=== PATIENT | male | born 1935 | race Caucasian/White ===

== ENCOUNTER → 2016-10-26 | Outpatient (CLI) | payer OTHER ==
[~2016-10-26] VITALS: Ht 177.8 cm; Wt 90.2 kg
[~2016-10-26] MED LIST: ADVIL100 M2 PO; ALLEGRA ALLERG180 MG PO; ALLEGRA60 MG PO; ANDROGEL; ASPIR 8181 M1 PO; CENTRUM SILVER1 EAC2 PO; CIPROFLOXACIN500 M3 PO; COQ-10100 MG PO; DIOVAN HCT 3201 EACH PO; FLOMAX PO; FLONASE 0.05%50 MCG NASAL; LEVOTHYROXIN0.025 MG PO; LIPITOR10 MG PO; TESTIM5 GM TOP; VITAMIN D2000 UNIT PO
--- NOTE | ~2016-10-26 | HPC ---
[facility] [address] [place] [address] PAIN MANAGEMENT CONSULTATION Name: SHANKAR MUIR Room #: REG [facility] Blas#: [id number] Admission: 10/26/16 Attend Phys: Graham Montelongo DO Discharge: Date of : 37 Report #: [id number] THIS REPORT FOR: //name// CC: Angela Monetlongo The patient is a 81-year-old gentleman, prior seen in the pain clinic 08/10/2016, with left trochanteric bursa at that time. Returns to pain clinic today noting that the hip pain has improved, but unfortunately he has had recurrence of his classic radicular pain down the left leg. He is planning drive to [place] next week. Concern with sitting in the car for a prolonged period of time will have exacerbation of radicular symptoms. PHYSICAL EXAMINATION: Shows 81-year-old gentleman, BMI is 28.5 kilograms per meter squared. Vital signs stable as noted in the EMR. Rises from chair using armrest, has an antalgic gait with positive straight leg raise on the left, slight decreased left hip flexion strength and left plantar flexion strength. Patient encouraged to take daily aspirin, which he already does. The patient encouraged to stop his drive every hour or 2 and get out to stretch. ASSESSMENT: Symptomatic lumbar radiculopathy secondary to spinal stenosis. PROCEDURE: Lumbar epidural injection under fluoroscopy. PROCEDURE NOTE: After both written and informed consent to include risk of spinal cord damage, increased pain, weakness and dural puncture, the patient was taken to the fluoroscopy suite, placed in the prone position. After sterile prep and drape, a skin wheal with lidocaine was raised. A 22-gauge epidural Tuohy needle was inserted in the midline at L5-S1 with good loss to resistance. Negative aspiration for cerebrospinal fluid or blood was noted. Then 1 mL of Omnipaque under biplanar fluoroscopy showed good spread within the epidural space. This was followed with 80 mg of triamcinolone plus 1 mL of 1.5% preservative-free Xylocaine, 0.5 mL Xylocaine was then injected to flush the needle; it was removed. The patient was monitored for an appropriate period of time and discharged in good and stable condition. <ELECTRONICALLY SIGNED> By: Graham Montelongo DO 10/27/16 1308 [id number] Graham Montelongo DO /nt
[2016-10-26 10:09] VITALS: BP 134/75
== END ==
LOC: PAIN 07:24
DX: M54.16 Radiculopathy, lumbar region (principal); M48.06 Spinal stenosis, lumbar region; I10 Essential (primary) hypertension

== ENCOUNTER → 2017-01-15 | Outpatient (CLI) | payer OTHER ==
[~2017-01-15] VITALS: Ht 177.8 cm; Wt 89.5 kg
--- NOTE | ~2017-01-15 | HPC ---
[facility] [place] [address] PAIN MANAGEMENT CONSULTATION Name: SHANKAR MUIR Room #: REG [facility]#: [id number] Admission: 01/15/17 Attend Phys: Graham Montelongo DO Discharge: Date of : 37 Report #: [id number] THIS REPORT FOR: //name// CC: Angela Montelongo The patient is a very pleasant 81-year-old gentleman, last seen in the pain clinic on October 23, we did an epidural injection for lumbar radicular pain with excellent improvement, greater than 90% for greater than 6 weeks. The patient prior had a left trochanteric bursa injection several months ago, again with relief from specific left hip pain. He returns to pain clinic today noting the pain has recurred acutely in the left hip. The patient notes pain began without antecedent trauma or overuse. Pain is in the left hip, posterior buttock, posterior thigh down to the foot. Pain is exacerbated with standing and walking. Though, he notes that with increased activity overtime, it does seem to get "a little bit better." The patient has been taking some Aleve OTC. Doing some stretching, all without significant efficacy. We reviewed diagnostic findings including MRI noting lumbar spondylosis and compromise throughout the low lumbar spine. Diagnostic study is noted in the chart. PHYSICAL EXAMINATION: Shows a pleasant 81-year-old gentleman, vitals on the EMR. He rises from chair using armrest, markedly antalgic gait favoring the left leg. Positive straight leg raise at 30 degrees. Decreased left hip flexion and plantar flexion strength. Achilles reflex nominally diminished on the left. Patellar reflexes are preserved. Passive rotation of the hip is unremarkable. Resistance to left leg abduction does not exacerbate pain compatible with classic trochanteric bursitis. ASSESSMENT: 1. Symptomatic lumbar radiculopathy by clinical exam and history. 2. Possible component of trochanteric bursitis. RECOMMENDATIONS: 1. Epidural injection under fluoroscopy today at L4-L5, left to midline. 2. Continue Aleve OTC b.i.d. 3. Follow up in 1 week for reevaluation and if symptomatic, consider trochanteric bursa at that time. PROCEDURE: Lumbar epidural injection under fluoroscopy. PROCEDURE NOTE: After both written and informed consent to include risk of spinal cord damage, increased pain, weakness and dural puncture, the patient was [address] [address] PAIN MANAGEMENT CONSULTATION Name: SHANKAR MUIR Room #: REG [facility]#: [id number] Admission: 01/15/17 Attend Phys: Graham Montelongo DO Discharge: Date of : 37 Report #: [id number] taken to the fluoroscopy suite, placed in the prone position. After sterile prep and drape, a skin wheal with lidocaine was raised. A 22-gauge epidural Tuohy needle was inserted in the midline at L4-L5 with good loss to resistance. Negative aspiration for cerebrospinal fluid or blood was noted. Then 1 mL of Omnipaque under biplanar fluoroscopy showed good spread within the epidural space. This was followed with 80 mg of triamcinolone plus 1 mL of 1.5% preservative-free Xylocaine, 0.5 mL Xylocaine was then injected to flush the needle; it was removed. The patient was monitored for an appropriate period of time and discharged in good and stable condition. By: [id number] Graham Montelongo DO /nt
[2017-01-15 09:42] VITALS: BP 159/85
== END | disposition home or self-care (01) ==
LOC: PAIN 01-04 08:25
DX: M54.16 Radiculopathy, lumbar region (principal)

== ENCOUNTER → 2017-01-22 | Outpatient (CLI) | payer OTHER ==
[~2017-01-22] VITALS: Ht 177.8 cm; Wt 89.9 kg
--- NOTE | ~2017-01-22 | HPC ---
[facility] [place] [address] PAIN MANAGEMENT CONSULTATION Name: SHANKAR MUIR Room #: REG [facility]#: [id number] Admission: 01/22/17 Attend Phys: Graham Montelongo DO Discharge: Date of : 37 Report #: [id number] THIS REPORT FOR: //name// CC: Angela Montelongo The patient is a very pleasant 81-year-old gentleman, has been treated for lumbar radiculopathy and left trochanteric bursitis. Actually at last visit on 01/15/2017, we proceeded with epidural injection at L4-L5. Continued with some Aleve OTC. He returns to pain clinic today noting greater than 50% improvement following the lumbar epidural injection, though still has point tenderness over the left trochanteric bursa. Pain is exacerbated with resistance to abduction. ASSESSMENT: Symptomatic left trochanteric bursitis. RECOMMENDATIONS: Left trochanteric bursa injection today, continue range of motion, core strengthening exercises. Follow up simply as needed. PROCEDURE NOTE: After written informed consent was obtained, the patient was placed in the right lateral decubitus position. Skin overlying the left trochanter was cleansed with ChloraPrep. A 22-gauge stylet needle was placed to contact the point of maximum tenderness over the left trochanteric bursa. Negative aspiration was accomplished. 40 mg triamcinolone plus 3 mL of 0.5% preservative-free bupivacaine was injected into and around the joint. Needle was removed. The area was cleansed, Band-Aids applied. The patient was monitored for an appropriate period of time, discharged in good and stable condition. <ELECTRONICALLY SIGNED> By: Graham Montelongo DO 01/22/17 1427 1329 1339 Graham Montelongo DO /nt
== END | disposition home or self-care (01) ==
LOC: PAIN 07:32
DX: M70.62 Trochanteric bursitis, left hip (principal); Z88.8 Allergy status to other drugs, medicaments and biological substances; Z79.82 Long term (current) use of aspirin; Z79.899 Other long term (current) drug therapy; Z98.890 Other specified postprocedural states

== ENCOUNTER → 2017-06-29 | Outpatient (CLI) | payer OTHER ==
[~2017-06-29] VITALS: Ht 177.8 cm; Wt 91.7 kg
[~2017-06-29] MED LIST changes: -ANDROGEL; +ANDROGEL TOP; +NORVASC5 MG PO
--- NOTE | ~2017-06-29 | HPC ---
[facility] [place] [address] PAIN MANAGEMENT CONSULTATION Name: SHANKAR MUIR Room #: REG [facility] Odon[facility]#: [id number] Admission: 06/29/17 Attend Phys: Graham Montelongo DO Discharge: Date of : 37 Report #: [id number] THIS REPORT FOR: //name// CC: Paddy Montelongo DATE OF SERVICE: 06/29/2017 The patient is an 82-year-old gentleman, prior seen in the Pain Clinic 01/22/2017 for left trochanteric bursitis. He has ongoing lumbar radicular pain. I did a left trochanteric bursa injection at that time with overall improvement of the left trochanteric bursa pain. I had prior to that done an epidural injection on 01/15/2017 for ongoing radicular pain. He progressed to have decompressive laminectomy by Dr. Arriaga, which has helped some with the radicular pain, though he still has what sounds like L4 radicular pain in the left leg, but point tenderness over the trochanteric bursa. PHYSICAL EXAMINATION: Shows a pleasant 82-year-old gentleman, BMI is 29 kg/m2. Vital signs stable as noted on the EMR with modest diastolic hypertension (blood pressure 135/93). Rises from chair using armrest, nominally antalgic gait. Lower extremity strength is symmetric. Straight leg raise is negative. Passive rotation of the hip is unremarkable. Very tender to palpate over the left trochanteric bursa. Nominally positive straight leg raise on the left. ASSESSMENT: Symptomatic lumbar radiculopathy with clinical exam and history. Left trochanteric bursitis seems to be the most problematic at present. Status post lumbar decompressive laminectomy greater than 6 weeks ago (April). RECOMMENDATIONS: 1. Left trochanteric bursa injection today, continue current medication, unchanged. 2. Follow up in 2-3 weeks for reevaluation. Consideration for epidural injection if indicated for ongoing radicular symptoms at that time. PROCEDURE NOTE: Left trochanteric bursa injection. DESCRIPTION OF PROCEDURE: After informed consent was obtained, the patient is placed in the right lateral decubitus position. Skin overlying the trochanteric bursa was cleansed with ChloraPrep. Skin wheal with Xylocaine was raised. A 22-gauge stylet needle was placed to contact the proximal aspect of the femur distal to the head. Needle was then withdrawn approximately 1 mm. Negative aspiration was accomplished. 40 mg triamcinolone plus 2 mL of 0.5% preservative-free bupivacaine was injected into and around the trochanteric bursa. Needle was removed. The area was cleansed and Band-Aids applied. The [address] [address] PAIN MANAGEMENT CONSULTATION Name: SHANKAR MUIR Room #: REG [facility]#: [id number] Admission: 06/29/17 Attend Phys: Graham Montelongo DO Discharge: Date of : 37 Report #: [id number] patient was told to use ice the area today. Follow up in 3 weeks for reevaluation. <ELECTRONICALLY SIGNED> By: Graham Montelongo DO 07/02/17 0731 1211 1808 Graham Montelongo DO /nt
[2017-06-29 10:42] VITALS: BP 135/93
== END ==
LOC: PAIN 06:47
DX: M70.62 Trochanteric bursitis, left hip (principal); Z98.890 Other specified postprocedural states; Z79.82 Long term (current) use of aspirin; Z79.899 Other long term (current) drug therapy; Z88.8 Allergy status to other drugs, medicaments and biological substances

== ENCOUNTER → 2017-07-05 | Outpatient (CLI) | payer OTHER ==
[~2017-07-05] VITALS: Ht 177.8 cm; Wt 90.7 kg
--- NOTE | ~2017-07-05 | P ---
[facility] [place] [address] PROCEDURE REPORT Name: SHANKAR MUIR Room #: REG [facility]#: [id number] Admission: 07/05/17 Attend Phys: Ortzi Carrasco MD Discharge: Date of : 37 Report #: [id number] THIS REPORT FOR: //name// CC: Paddy Carrasco BRIEF HISTORY: The patient is an 82-year-old male for average risk screening colonoscopy. PREOPERATIVE DIAGNOSIS: Average screening colonoscopy. POSTOPERATIVE DIAGNOSIS: Multiple colon polyps. MEDICATIONS: Deep sedation with propofol per anesthesia. SPECIMENS: 1. Polyp from cecum. 2. Polyp from proximal ascending colon. 3. Polyp from hepatic flexure. 4. Polyp at 40 cm. 5. Polyp from rectum. ESTIMATED BLOOD LOSS: 3 mL. PROCEDURE: Colonoscopy to cecum and terminal ileum. FINDINGS: Prior to propofol sedation, the procedure of colonoscopy discussed with the patient as well as potential risks, benefits, and complications. He indicates he understands and desires to proceed. With the patient in left lateral decubitus position, digital examination was completed, which revealed no abnormalities. Subsequently, the [employer] video colonoscope was introduced in the rectum, advanced under direct vision to the cecum. It was done with minimal difficulty. The cecum was identified by the ileocecal valve and the appendiceal orifice. I was able to advance the tip of the scope to the mouth of the ileocecal valve. I could see a villous pattern, but due to looping, we could not deeply intubate the ileum. At that point, the scope was slowly withdrawn and careful circumferential views were obtained. As the scope was withdrawn, he was noted have a diminutive polyp in the cecum, which was removed by biopsy. In the proximal ascending colon, a 5-6 mm sessile polyp was seen and removed by cold snare polypectomy. Scope was further withdrawn and in the hepatic flexure, a diminutive polyp was seen and removed by biopsy and another diminutive polyp was seen and removed by biopsy at 40 cm. In the rectum, a flat polyp about 6-8 mm across was removed by hot snare polypectomy. The scope was further drawn and no additional abnormalities were seen. Upon retroflexion, no abnormalities were seen. Scope was withdrawn. The [address] [address] PROCEDURE REPORT Name: SHANKAR MUIR Room #: REG [facility].#: [id number] Admission: 07/05/17 Attend Phys: Ortiz Carrasco MD Discharge: Date of : 37 Report #: [id number] patient tolerated the procedure well. CONDITION OF THE PATIENT UPON DISCHARGE: Following procedure, the patient drowsy, aroused, conversant and will be discharged home when fully ambulatory. INSTRUCTIONS TO THE PATIENT AND FAMILY AT THE TIME of DISCHARGE: Five polyps identified and removed as described above. I suspect these are mostly adenomas. If he has three or more adenomas, he should return in 3 years, if only 1 or 2, then 5 years. If none of them are adenomas, no follow up will be indicated. In addition, with regards to recommendations for that on the patient's clinical status in the future. If his health is good and longevity is thought to be at least 7-8 years or more, then it would be reasonable to proceed with those recommended colonoscopies. He will return to care of Dr. Martinez. Last colonoscopy was 04/22/2007. Withdrawal time from the cecum including extensive washing of bilious material was 24 minutes and 52 seconds. <ELECTRONICALLY SIGNED> By: Ortiz Carrasco MD 07/06/17 1015 0941 1707 Ortiz Carrasco MD /nt
--- NOTE | ~2017-07-05 | S ---
[facility] [place] [address] SURGICAL PATH RPT PROCEDURE Name: SHANKAR UPRI Filippo Room #: REG [facility]..#: [id number] Admission: 07/05/17 Date of : 39 Discharge: Report #: [id number] Path Case #: [id number] PATHOLOGY REPORT COLLECTION DATE: 07/05/2017 RECEIVED DATE: 07/05/2017 SUBMITTING PHYS: Dr. Ortiz Carrasco OTHER PHYS: Dr. Paddy Martinez SPECIMEN(S) RECEIVED: A.Bx polyp at cecum B.Polyp at proximal ascending colon C.Polyp at hepatic flexure D.Polyp at 40 cm E.Polyp at rectum * * * * * * * * * * * * FINAL DIAGNOSIS: A. Polyp, at cecum, endoscopic biopsy: - Tubular adenoma. - Negative for high grade dysplasia. B. Polyp, proximal ascending colon polyp, endoscopic biopsy: - Tubular adenoma. - Negative for high grade dysplasia. C. Polyp, at hepatic flexure, endoscopic biopsy: - Tubular adenoma. - Negative for high grade dysplasia. D. Polyp, at 40 cm, endoscopic biopsy: - Superficial fragments showing hyperplastic polyp. - Negative for dysplasia. E. Polyp, at rectum, endoscopic biopsy: - Tubular adenoma. - Negative for high grade dysplasia. - Inked margins showing cauterized unremarkable mucosa. (IUV:mml; 07/06/2017) PATHOLOGIST: Lakisha Bone M.D. REPORT ELECTRONICALLY SIGNED BY: Lakisha Bone M.D. DATE/TIME: 07/06/2017 14:23 * * * * * * * * * * * * GROSS PATHOLOGY: A. Received in formalin labeled "Shankar Puri, polyp at cecum," are 2 segments of gaston soft tissue measuring 0.7 x 0.2 x 0.2 cm in aggregate dimensions and ranging from 0.3 to 0.4 cm in maximum dimension. The specimen is submitted entirely in cassette A1. [address] [address] SURGICAL PATH RPT PROCEDURE Name: SHANKAR PURI Room #: REG [facility].#: [id number] Admission: 07/05/17 Date of : 37 Discharge: Report #: [id number] Path Case #: [id number] B. Received in formalin labeled "Shankar Jaxson, polyp proximal ascending colon," is a segment of gaston soft tissue measuring 0.6 cm in maximum dimension. The specimen is submitted entirely in cassette B1. C. Received in formalin labeled "Shankar Puri, BX of hepatic flexure," are 3 segments of gaston soft tissue measuring 0.7 x 0.5 x 0.2 cm in aggregate dimensions and ranging from 0.3 to 0.4 cm in maximum dimension. The specimen is submitted entirely in cassette C1. D. Received in formalin labeled "Shankar Puri, polyp at 40 cm," is a segment of gaston soft tissue measuring 0.4 cm in maximum dimension. The specimen is submitted entirely in cassette D1. E. Received in formalin labeled "Shankar Puri, BX of rectal polyp," is a 0.7 x 0.4 x 0.4 cm polypoid piece of gaston soft tissue with a stalk measuring 0.6 cm in length and 0.7 cm in diameter. The margin of the stalk is inked and the tissue is sectioned perpendicular to the margin and submitted in its entirety in cassette E1. (TSD; 07/05/2017) CLINICAL HISTORY: Colon polyps INITIAL CPT CODE(S): A; 95614 B; 27941 C; 91278 D; 87628 E; 15016 Professional services performed by [facility] at [facility] [address], [place] [address] Technical services performed by [facility] at [address] [place] [address], [address], [place] [address]. [facility] [address] [place] [address] PHONE: [phone] DIRECTOR: Kervin Castro M.D. * * * END OF REPORT * * *
== END | disposition home or self-care (01) ==
LOC: GI 08:00
DX: Z12.11 Encounter for screening for malignant neoplasm of colon (principal); D12.0 Benign neoplasm of cecum; D12.2 Benign neoplasm of ascending colon; D12.3 Benign neoplasm of transverse colon; D12.8 Benign neoplasm of rectum; K63.5 Polyp of colon; I10 Essential (primary) hypertension; E78.5 Hyperlipidemia, unspecified; Z98.890 Other specified postprocedural states; Z88.8 Allergy status to other drugs, medicaments and biological substances; Z79.82 Long term (current) use of aspirin; Z79.899 Other long term (current) drug therapy
CPT/HCPCS: 62110; 62900

== ENCOUNTER → 2017-11-01 | Outpatient (CLI) | payer OTHER ==
[~2017-11-01] VITALS: Ht 177.8 cm; Wt 92.9 kg
--- NOTE | ~2017-11-01 | HPC ---
[facility] [place] [address] PAIN MANAGEMENT CONSULTATION Name: SHANKAR MUIR Room #: REG [facility]#: [id number] Admission: 11/01/17 Attend Phys: Graham Montelongo DO Discharge: Date of : 37 Report #: [id number] THIS REPORT FOR: //name// CC: Paddy Montelongo DATE OF SERVICE: 11/01/2017 The patient is an 82-year-old gentleman, prior seen in the Pain Clinic back in June for left trochanteric bursitis. He is status post lumbar decompressive laminectomy. He has had 2 left trochanteric bursa injections, the last being 06/29/2017. Prior, he had single left bursa injection in December. These have afforded good long term care phlebotomist relief. The patient specifically notes 75% relief for about 3-4 months. The patient notes pain has recurred without antecedent trauma and overuse. It is in the left leg lateral aspect, radiating down the leg, but not below the knee. He incidentally has some left foot neuropathic pain, does appear to be radicular component; however, it is not necessarily related to the left trochanteric bursa pain. PHYSICAL EXAMINATION: Shows pleasant 82-year-old gentleman, BMI is 29.4 kg/m2, blood pressure on EMR, pulse 77, respirations 16. Rises from chair using armrest. Gait is generally tandem though somewhat antalgic. Does have tenderness over the left trochanteric bursa. Passive rotation of the hip is unremarkable. DOT test is negative. Gaenslen's test is negative. Does have pain with lateral compression over the proximal aspect of the left femur. ASSESSMENT: 1. Left trochanteric bursitis by clinical exam and history. 2. Lumbar radiculopathy, status post decompressive laminectomy by history. RECOMMENDATIONS: I will proceed with left trochanteric bursa injection today, follow up in 2 weeks for reevaluation. If symptoms are relatively quiet, we will have him cancel the appointment. If he has ongoing radicular pain in the left lower leg, we will consider epidural injection as indicated by clinical exam at that time. PROCEDURE: Left trochanteric bursa injection. PROCEDURE NOTE: After written informed consent was obtained, the patient is placed in the right lateral decubitus position. Skin overlying the left trochanteric bursa was cleansed with ChloraPrep. Skin wheal with Xylocaine was raised. A 25-gauge needle was used to inject 40 mg triamcinolone plus 4 mL of 0.5% preservative-free bupivacaine into and around the trochanteric bursa. Needle was removed. The area was cleansed, Band-Aids applied. The patient [address] [address] PAIN MANAGEMENT CONSULTATION Name: SHANKAR MUIR Room #: REG [facility]#: [id number] Admission: 11/01/17 Attend Phys: Graham Montelongo DO Discharge: Date of : 37 Report #: [id number] monitored for an appropriate period of time. Told to watch the area for infection, to use ice to the area as needed. Tentative appointment in 2 weeks. Cancel if doing well. <ELECTRONICALLY SIGNED> By: Graham Montelongo DO 11/05/17 0711 1227 [id number] Graham Montelongo DO /nt
[2017-11-01 09:14] VITALS: BP 133/69
== END | disposition home or self-care (01) ==
LOC: PAIN 07-13 13:01
DX: M70.62 Trochanteric bursitis, left hip (principal); G89.29 Other chronic pain; M54.16 Radiculopathy, lumbar region; Z98.890 Other specified postprocedural states; Z88.8 Allergy status to other drugs, medicaments and biological substances; Z79.82 Long term (current) use of aspirin; Z79.899 Other long term (current) drug therapy

== ENCOUNTER → 2018-08-29 | Outpatient (CLI) | payer OTHER ==
[~2018-08-29] VITALS: Ht 177.8 cm; Wt 94.1 kg
[~2018-08-29] MED LIST changes: +LOSARTAN-HCTZ1 EACH PO
--- NOTE | ~2018-08-29 | HPC ---
[facility] [place] [address] PAIN MANAGEMENT CONSULTATION Name: WOODSHANKAR Filippo Room #: REG [facility] Carrington.#: [id number] Admission: 08/29/18 ������������������ Attend Phys: Duarte Salinas MD Discharge: ������������������ Date of : 39 Report #: [id number] THIS REPORT FOR: //name// CC: Paddy Salinas DATE OF SERVICE: 08/29/2018 Followup visit for chronic low back pain with radiculopathy and trochanteric bursitis. The patient is here today complaining of lumbar pain. It radiates into both legs and is associated with weakness. He has difficulty walking long distances. The pain is primarily across his low back, but he does have radicular features into both legs with an aching sensation. He has responded nicely to epidural injections that have been provided previously by Dr. Graham Montelongo. He has had infrequent epidural injections; his last one was on 12/2016. He had had 2 injections in the calendar year 2017 in the epidural space, one in 2015 and one in 2013. His pain is becoming a bit more intense and he is hopeful that we can see good response as we have in the past. His trochanteric bursa is also tender. He responded very favorably to an injection from Dr. Montelongo in 10/2017 for the trochanteric bursa localized discomfort. Hopeful the epidural injection will cover both pain generators with the triamcinolone affect. PQRS REVIEW: 1. He does not have a history of osteoarthritis. He has been in good skeletal health except for his spine and bursa pain. 2. Pain intensity 7/10. 3. He is not a fall risk nor has he fallen in the last 3 months. 4. He is on no blood thinners. 5. Dr. Martinez treats him for hypertension and we reviewed his medications. All medications reviewed and reconciled from the electronic medical record. 6. He is not on an opioid agreement. 7. He has completed an opioid risk tool and is considered a low risk. 8. He does not use tobacco or alcohol. PHYSICAL EXAMINATION: Blood pressure is 151/70, heart rate 73, BMI 29.8. He is younger appearing than his stated age of 83. He is sharp and alert, moves easily from a sitting to standing position, has a stable gait. Examination of the spine reveals normal alignment. There are no scars from surgery. There is good range of motion in all planes. None of these procedures reproduce her radicular pain. There is mild straight leg raising noted on the right and left with tightness in the posterior aspect of the leg. He has generalized weakness [address] [address] PAIN MANAGEMENT CONSULTATION Name: SHANKAR MUIR Room #: REG [facility]#: [id number] Admission: 08/29/18 ������������������ Attend Phys: Duarte Salinas MD Discharge: ������������������ Date of : 39 Report #: [id number] as a report. Sensation is intact. Deep tendon reflexes are evaluated and are 1+ at the knees and absent to trace at the ankles bilaterally. IMPRESSION: Chronic low back pain. His MRI has shown spinal stenosis at L4-L5. PLAN: We will repeat the epidural steroid injection, which has been helpful in the past. Potential risks and benefits were reviewed. He would like to proceed. He was taken to fluoroscopic suite. He was placed prone. Skin prepped with ChloraPrep. Skin anesthetized over the L4-L5 interspace. A 20-gauge Tuohy epidural needle advanced first attempt in the epidural space with loss of resistance technique. There was no blood or CSF aspirated. 1 mL of Omnipaque was injected. Good spread of dye observed into the epidural space, was followed by 3 mL of 0.5% lidocaine mixed with 80 mg of triamcinolone. He tolerated the procedure well with no complications. He was observed for 45 minutes in recovery room and discharged. Follow up as needed. ��������������������������������������������� ���������������������������������������� By: ��������������������������������������������� [id number] Duarte Salinas MD /nt
[2018-08-29 08:33] VITALS: BP 151/70
--- NOTE | 2018-08-29 08:45 | NUR ---
Pain Clinic Assessment: 1. History of Osteoarthritis: Not Applicable History of Rheumatoid Arthritis: Not Applicable 2. Height: 5 ft. 10 in. 177.8 cm. Weight: 207.4 lb. oz. 94.076 kg. Patient's BMI: 29.8 3. Vital Signs: BP: 151/70 Pulse: 73 Resp: 16 Temp: 02 Sat: 94 ECG Mon: 4. Pain Intensity: 7 5. Fall Risk: Dizziness: N Needs help standing or walking: N Fallen in the last 3 months: N Fall risk comments: 6. Patient on Blood Thinner: None 7. History of Hypertension: Y 8. Opioid Therapy greater than 6 weeks: N Opiate Contract Signed: 9. Risk Assessment Tool Provided: LOW RISK 0/3 10. Functional Assessment Tool: 11. Recreational Drug Use: Never Drug Type: Tobacco Use: Never Smoker Tobacco Type: Amount or Packs/day: How Many Years: Alcohol Use: Yes Frequency: Special Occasions Quant: 1
== END | disposition home or self-care (01) ==
LOC: PAIN 06:58
DX: M54.16 Radiculopathy, lumbar region (principal); G89.29 Other chronic pain; M48.061 Spinal stenosis, lumbar region without neurogenic claudication; M70.60 Trochanteric bursitis, unspecified hip; I10 Essential (primary) hypertension; Z88.8 Allergy status to other drugs, medicaments and biological substances; Z79.899 Other long term (current) drug therapy; Z98.890 Other specified postprocedural states

== ENCOUNTER → 2018-09-30 | Outpatient (CLI) | payer OTHER ==
[~2018-09-30] VITALS: Ht 177.8 cm; Wt 92.7 kg
--- NOTE | ~2018-09-30 | HPC ---
[address] [place] [address] PAIN MANAGEMENT CONSULTATION Name: SHANKAR MUIR [id number] Admission: 09/30/18 ������������������ Attend Phys: Duarte Salinas MD Discharge: ������������������ Date of : 39 Report #: [id number] THIS REPORT FOR: //name// CC: Paddy Salinas DATE OF SERVICE: 09/30/2018 Followup visit for trochanteric bursa pain on the left. The patient returns to pain clinic in followup for hip pain. He responded beautifully to a lumbar epidural injection on 08/29, and his leg pain is completely gone. He has been walking more. He has typically responded very well to epidural injections. He has a second pain generator. However, the left trochanter has exquisite local tenderness, and this bothers him around the clock. It does not radiate. MEDICATIONS: Reviewed and reconciled. There have been no changes since previous visit. PHYSICAL EXAMINATION: Pleasant 83-year-old, moves from sitting to standing position, ambulates without too much difficulty. Examination of spine is normal with good range of motion. No local tenderness today. Straight leg raising is negative bilateral. Hip range of motion is normal on the right. He has some pain with internal and external rotation of the hip on the left. The most notable finding, however, is a very localized significant local tenderness overlying the trochanteric bursa. There is no redness or swelling. IMPRESSION: Trochanteric bursitis, left. RECOMMENDATION: Trochanteric bursa injection. After informed consent, he was placed in the right lateral decubitus position. Skin was prepped with ChloraPrep. A 27-gauge needle was used to anesthetize the skin with 1% lidocaine and then a 25-gauge needle used to infiltrate around the greater trochanter and posterior to the trochanter with 4 mL of 0.5% bupivacaine mixed with 40 mg triamcinolone. He tolerated the procedure well, was observed for 30 minutes and discharged. Pain was reduced significantly at discharge. There were no complications. Followup visit as needed. ��������������������������������������������� ���������������������������������������� By: ��������������������������������������������� [id number] Duarte Salinas MD /nt
[2018-09-30 09:20] VITALS: BP 135/74
--- NOTE | 2018-09-30 09:29 | NUR ---
Pain Clinic Assessment: 1. History of Osteoarthritis: Not Applicable History of Rheumatoid Arthritis: Not Applicable 2. Height: 5 ft. 10 in. 177.8 cm. Weight: 204.4 lb. oz. 92.715 kg. Patient's BMI: 29.3 3. Vital Signs: BP: 135/74 Pulse: 68 Resp: 16 Temp: 02 Sat: 95 ECG Mon: 4. Pain Intensity: 3-4 5. Fall Risk: Dizziness: N Needs help standing or walking: N Fallen in the last 3 months: N Fall risk comments: 6. Patient on Blood Thinner: None 7. History of Hypertension: Y 8. Opioid Therapy greater than 6 weeks: N Opiate Contract Signed: 9. Risk Assessment Tool Provided: LOW RISK 0/3 10. Functional Assessment Tool: 35/70 11. Recreational Drug Use: Never Drug Type: Tobacco Use: Never Smoker Tobacco Type: Amount or Packs/day: How Many Years: Alcohol Use: Yes Frequency: Quant:
== END | disposition home or self-care (01) ==
LOC: PAIN 06:48
DX: M70.62 Trochanteric bursitis, left hip (principal); G89.29 Other chronic pain; Z98.890 Other specified postprocedural states; Z88.8 Allergy status to other drugs, medicaments and biological substances; Z79.899 Other long term (current) drug therapy